=== PATIENT | male | born 1985 | race Two or more races ===

== ENCOUNTER 2018-11-21 21:08 | Emergency (ER) | payer MEDICAID, OTHER ==
[~2018-11-21] VITALS: Ht 175.3 cm; Wt 110.7 kg
--- NOTE | 2018-11-21 21:20 | NUR ---
ED Nurse Note: pt walked in to ED. C/O a boil like bump to left buttocks area. redness and swelling noted. tender to touch. states pain 8/10 pt is alert x4.
[2018-11-21 21:21] VITALS: BP 130/80
[2018-11-21] MEDS ORDERED: Lidocaine 1% Plain 30 ml INJ ONE ×2 (21:44→21:45)
[2018-11-21] MEDS ORDERED: Ketorolac 30mg Inj IM ONE (22:15)
[2018-11-21] MEDS ORDERED: Morphine Sulfate 2mg/ml Inj(IV/IM USE ONLY) IM ONE (22:30)
[2018-11-21] MEDS ORDERED: LET 3ml Soln TOPIC ONE ×2 (22:32→22:45)
[2018-11-21] MEDS ORDERED: CEPHALEXIN500 MG ORAL (22:56)
[2018-11-21] MEDS ORDERED: BACTRIM DS TAB1 EAC1 ORAL (22:56)
[2018-11-21 22:58] VITALS: BP 130/76
--- NOTE | 2018-11-21 22:58 | NUR ---
ER DISCHARGE NOTE: Patient is cleared to be discharged per ERMD, pt is aox4, on room air, with stable vital signs. pt was given dc and prescription instructions, pt was able to verbalize understanding, pt id band removed without complications. pt is able to ambulate with steady gait. pt took all belongings.
--- NOTE | 2018-11-22 03:34 | Emergency Room Report ---
History of Present Illness General Chief Complaint: Skin Rash/Abscess Source: Patient Present Illness HPI 33-year-old male resents ED for evaluation. Patient complaining of boil to his left buttock which she noticed yesterday. Throbbing, 7 out of 10, nonradiating. Worse with sitting. States he has had previous abscesses in the past. Denies fevers or chills. Denies any discharge. No other aggravating relieving factors. Denies any other associated symptoms Allergies: Coded Allergies: No Known Allergies (Verified Allergy, Mild, 04/22/07) Patient History Past Medical History: none Past Surgical History: none Pertinent Family History: none Social History: Denies: smoking, alcohol use, drug use Immunizations: UTD Reviewed Nursing Documentation: PMH: Agreed; PSxH: Agreed Nursing Documentation-PMH Past Medical History: No Stated History Review of Systems All Other Systems: negative except mentioned in HPI Physical Exam Vital Signs Date Time Temp Pulse Resp B/P (MAP) Pulse Ox O2 Delivery O2 Flow Rate FiO2 11/21/18 21:13 99.3 86 18 129/81 (97) 96 Room Air Sp02 EP Interpretation: reviewed, normal General Appearance: no apparent distress, alert, GCS 15, non-toxic Head: normocephalic Eyes: bilateral eye normal inspection, bilateral eye PERRL ENT: normal ENT inspection Neck: normal inspection Respiratory: normal inspection Cardiovascular #1: normal inspection Gastrointestinal: normal inspection Rectal: deferred Genitourinary: no CVA tenderness Musculoskeletal: normal inspection Neurologic: alert, oriented x3, responsive, motor strength/tone normal, sensory intact, speech normal Psychiatric: normal inspection Skin: other - abscess to L inner buttock. fluctuance. minimal surrounding erythema/induration Lymphatic: normal inspection Procedures Incision and Drainage Incision and Drainage : Consent: Verbal Blade Size: 15 I & D Procedure: betadine prep, sterile drapes applied, sterile dressing applied Wound Location: other - L buttock Wound's Depth, Shape: other - abscess Wound Explored: clean Anesthesia: 1% Lidocaine Patient Tolerated: Well Complications: None Medical Decision Making Diagnostic Impression: Primary Impression: Abscess Additional Impression: Opioid dependence Qualified Codes: F11.29 - Opioid dependence with unspecified opioid-induced disorder ER Course Hospital Course 33 yo M presents to ED c/o abscess L buttock Clinical course Patient placed on stretcher. After initial history and physical I ordered pain medications + topical anesthetic Patient requesting stronger pain meds. I reviewed CURES she is receiving multiple narcotic prescriptions on a monthly basis. I explained that I cannot provide her with additional stronger pain medications and he became very verbally abusive I explained to the patient that he will not receive any narcotic prescriptions. I will still drain his abscess if requested. Patient agrees. Abscess drained with some purulent discharge mostly blood. Pain improved after I&D. Dressing applied. Patient apologized for his behavior afterwards. Will discharge home with antibiotics. Sitz baths. Will provide referrals. Safe for discharge for close outpatient follow-up Diagnosis - abscess, opioid dependence Stable and discharged to home with prescription for bactrim, Keflex. wound Care instructions given. Followup with PMD. Return to ED if any signs of infection develop Last Vital Signs Date Time Temp Pulse Resp B/P (MAP) Pulse Ox O2 Delivery O2 Flow Rate FiO2 11/21/18 22:58 99.1 83 18 130/76 96 Room Air Status: improved Disposition: HOME, SELF-CARE Condition: Stable Scripts Trimethoprim/Sulfamethoxazole 160/800* (BACTRIM DS TABLET*) 1 Each Tablet 1 TAB ORAL Q12H, #14 TAB 0 Refills Prov: Otto Carroll MD 11/21/18 Cephalexin* (KEFLEX*) 500 Mg Capsule 500 MG ORAL EVERY 6 HOURS for 7 Days, CAP Prov: Otto Carroll MD 11/21/18 Referrals: NON PHYSICIAN (PCP) Jason Soto [facility] Departure Forms: Return to Work Return to Work Date: Nov 26, 2018 Work Restrictions: None Patient Instructions: Abscess, [id number] Otto Carroll MD Nov 22, 2018 03:34
== END 2018-11-21 22:59 | disposition home or self-care (01) ==
LOC: EMR 22:42
DX: L02.31 Cutaneous abscess of buttock (principal); F11.29 Opioid dependence with unspecified opioid-induced disorder
CPT/HCPCS: 10060; 96372; 99283; J1885; J2001; J2270; Z7502